=== PATIENT | female | born 1995 | race Caucasian/White ===

== ENCOUNTER 2022-03-28 18:07 | Emergency (ER) | payer MEDICAID, OTHER ==
[2022-03-28 19:06] LABS: BASOPHILS % (AUTO) 0.6 %; EOSINOPHILS # (AUTO) 0.1 10^3/uL (0.0-0.7); EOSINOPHILS % (AUTO) 2.2 %; HCT - HEMATOCRIT 38.3 % (37.0-47.0); HGB - HEMOGLOBIN 12.4 g/dL (12.0-16.0); LYMPHOCYTES # (AUTO) 1.3 10^3/uL (1.5-3.5); LYMPHOCYTES % (AUTO) 20.1 %; MEAN CORPUSCULAR HEMOGLOBIN 27.2 pg (27.0-31.0); MEAN CORPUSCULAR HGB CONC 32.4 g/dL (32.0-36.0); MEAN PLATELET VOLUME 11.4 fL (7.9-10.8); MONOCYTES # (AUTO) 0.5 10^3/uL (0.0-1.0); NEUTROPHILS # (AUTO) 4.4 10^3/uL (1.5-6.6); NEUTROPHILS % (AUTO) 68.8 %; PLT - PLATELET COUNT 193 10^3/uL (130-450); RED BLOOD COUNT 4.56 10^6/uL (4.20-5.40); RED CELL DISTRIBUTION WIDTH 13.5 % (12.0-15.0); WHITE BLOOD COUNT 6.4 x10^3/uL (4.8-10.8)
[2022-03-28 19:18] LABS: ALBUMIN 4.1 g/dL (3.2-5.5); ALBUMIN/GLOBULIN RATIO 1.4 (1.0-2.2); BILIRUBIN,TOTAL 0.2 mg/dL (0.2-1.0); CALCIUM 9.3 mg/dL (8.5-10.3); CREATININE 0.8 mg/dL (0.4-1.0); POTASSIUM 3.5 mmol/L (3.5-5.0); TOTAL PROTEIN 7.1 g/dL (6.7-8.2)
[2022-03-28 19:24] LABS: MUDS CUTOFF CONCENTRATIONS CUTOFF CONC BELOW:
[2022-03-28 19:27] LABS: BILIRUBIN,URINE NEGATIVE (NEGATIVE); GLUCOSE, URINE (UA) NEGATIVE (NEGATIVE); KETONES,URINE (UA) NEGATIVE (NEGATIVE); LEUKOCYTE ESTERASE, URINE TRACE (NEGATIVE); NITRITE,URINE NEGATIVE (NEGATIVE); OCCULT BLOOD,URINE NEGATIVE (NEGATIVE); PROTEIN,URINE NEGATIVE (NEGATIVE); UROBILINOGEN,URINE 0.2 (NORMAL) E.U./dL (NORMAL)
[2022-03-28 19:29] LABS: CLARITY,URINE HAZY (CLEAR); HCG UR QUAL NEGATIVE
[2022-03-28 19:39] LABS: BACTERIA,URINE Rare /HPF (None Seen); RBC,URINE 0-5 /HPF (0-5); SQUAMOUS EPITHELIAL CELL,UR FEW Squamous (<= Few); WBC,URINE 0-3 /HPF (0-5)
[2022-03-28 19:40] LABS: AMPHETAMINE SCREEN,URINE NEGATIVE (NEGATIVE); BARBITURATE SCREEN,UR NEGATIVE (NEGATIVE); BENZODIAZEPINES SCREEN, URINE POSITIVE (NEGATIVE); COCAINE SCREEN URINE NEGATIVE (NEGATIVE); METHADONE SCREEN, URINE NEGATIVE (NEGATIVE); METHAMPHETAMINES SCREEN, URINE NEGATIVE (NEGATIVE); OPIATE SCREEN, URINE NEGATIVE (NEGATIVE); OXYCODONE SCREEN, URINE NEGATIVE (NEGATIVE); PROPOXYPHENE SCREEN, URINE NEGATIVE (NEGATIVE); THC CANNABINOID SCREEN, URINE NEGATIVE (NEGATIVE); TRICYCLIC ANTIDEPRESSANT,URINE NEGATIVE (NEGATIVE)
--- NOTE | 2022-03-28 19:42 | ED Physician Documentation ---
History of Present Illness - Stated complaint Stated Complaint: STROKE SYMPTOMS - Chief complaint Chief Complaint: Neuro - History obtained from History obtained from: Patient - History of Present Illness Timing: How many days ago (2) Pain level max: 0 Pain level now: 0 Improved by: no ameliorating factors Worsened by: no exacerbating factors - Additonal information Additional information: c/o 2 days of clonic jerks/twitching, L>R, predominantly of trunk and LUE. Denies h/o similar symptoms. No inciting event. Patient moved to [facility] from [place] three months ago. Denies alcohol use. She does take alprazolam on daily basis but no recent missed doses. Review of Systems Constitutional: reports: Reviewed and negative Eyes: reports: Reviewed and negative Cardiac: reports: Reviewed and negative Respiratory: reports: Dyspnea. denies: Cough GI: reports: Reviewed and negative : denies: Now EGA Neurologic: denies: Generalized weakness, Focal weakness, Numbness, Headache PD PAST MEDICAL HISTORY - Past Medical History Past Medical History: Yes Other Past Medical History: lupus x 2013. SVT - Past Surgical History Past Surgical History: No - Allergies Allergies/Adverse Reactions: Allergies Allergy/AdvReac Type Severity Reaction Status Date / Time No Known Drug Allergies Allergy Verified 03/28/22 18:23 - Social History Does the pt smoke?: No Smoking Status: Never smoker PD ED PE NORMAL - Vitals Vital signs reviewed: Yes - General General: Alert and oriented X 3, No acute distress, Well developed/nourished - HEENT HEENT: Atraumatic, PERRL, EOMI, Moist mucous membranes - Neck Neck: Supple, no meningeal sign - Cardiac Cardiac: RRR, No murmur, No gallop, No rub - Respiratory Respiratory: No respiratory distress, Clear bilaterally - Abdomen Abdomen: Soft, Non tender - Neuro Neuro: Alert and oriented X 3, cross country coach 2-12 intact, No motor deficit, No sensory deficit, Normal speech Eye Opening: Spontaneous Motor: Obeys Commands Verbal: Oriented GCS Score: 15 - Psych Psych: Normal mood, Normal affect - Free text exam Free text exam: intermittent twitching/jerking movements (single clonic jerk movements) of trunk and BUE (L>R) Results - Vitals Vitals: Oxygen O2 Source Room air - Labs Labs: Microbiology 03/28/22 19:20 Urine Culture - Final Urine,Clean Catch >100,000 COLONIES/ML Polymicrobial growth including potential pathogens. This is suggestive of skin or other contamination. Laboratory Tests 03/28/22 03/28/22 03/28/22 18:53 18:58 18:58 WBC 6.4 RBC 4.56 Hgb 12.4 Hct 38.3 MCV 84.0 MCH 27.2 MCHC 32.4 RDW 13.5 Plt Count 193 MPV 11.4 H Neut # (Auto) 4.4 Lymph # (Auto) 1.3 L [place] # (Auto) 0.5 Eos # (Auto) 0.1 Baso # (Auto) 0.0 Absolute Nucleated RBC 0.00 Nucleated RBC % 0.0 Sodium 140 Potassium 3.5 Chloride 104 Carbon Dioxide 29 Anion Gap 7.0 BUN 10 Creatinine 0.8 Estimated GFR (MDRD) 86 L Glucose 94 Calcium 9.3 Total Bilirubin 0.2 AST 18 ALT 13 Alkaline Phosphatase 67 Total Protein 7.1 Albumin 4.1 Globulin 3.0 Albumin/Globulin Ratio 1.4 Lipase 47 TSH 2.52 Urine Color Urine Clarity Urine pH Ur Specific [place] Urine Protein Urine Glucose (UA) Urine Ketones Urine Occult Blood Urine Nitrite Urine Bilirubin Urine Urobilinogen Ur Leukocyte Esterase Urine RBC Urine WBC Ur Squamous Epith Cells Urine Bacteria Ur Microscopic Review Urine Culture Comments Urine HCG, Qual Urine Opiates Screen Ur Oxycodone Screen Urine Methadone Screen Ur Propoxyphene Screen Ur Barbiturates Screen Ur Tricyclics Screen Ur Phencyclidine Scrn Ur Amphetamine Screen U Methamphetamines Scrn U Benzodiazepines Scrn Urine Cocaine Screen U Cannabinoids Screen 03/28/22 19:20 WBC RBC Hgb Hct MCV MCH MCHC RDW Plt Count MPV Neut # (Auto) Lymph # (Auto) [place] # (Auto) Eos # (Auto) Baso # (Auto) Absolute Nucleated RBC Nucleated RBC % Sodium Potassium Chloride Carbon Dioxide Anion Gap BUN Creatinine Estimated GFR (MDRD) Glucose Calcium Total Bilirubin AST ALT Alkaline Phosphatase Total Protein Albumin Globulin Albumin/Globulin Ratio Lipase TSH Urine Color YELLOW Urine Clarity HAZY Urine pH 7.0 Ur Specific [place] 1.010 Urine Protein NEGATIVE Urine Glucose (UA) NEGATIVE Urine Ketones NEGATIVE Urine Occult Blood NEGATIVE Urine Nitrite NEGATIVE Urine Bilirubin NEGATIVE Urine Urobilinogen 0.2 (NORMAL) Ur Leukocyte Esterase TRACE H Urine RBC 0-5 Urine WBC 0-3 Ur Squamous Epith Cells FEW Squamous Urine Bacteria Rare Ur Microscopic Review INDICATED Urine Culture Comments INDICATED Urine HCG, Qual NEGATIVE Urine Opiates Screen NEGATIVE Ur Oxycodone Screen NEGATIVE Urine Methadone Screen NEGATIVE Ur Propoxyphene Screen NEGATIVE Ur Barbiturates Screen NEGATIVE Ur Tricyclics Screen NEGATIVE Ur Phencyclidine Scrn NEGATIVE Ur Amphetamine Screen NEGATIVE U Methamphetamines Scrn NEGATIVE U Benzodiazepines Scrn POSITIVE H Urine Cocaine Screen NEGATIVE U Cannabinoids Screen NEGATIVE - Rads (name of study) CTH Radiology: Prelim report reviewed, See rad report PD MEDICAL DECISION MAKING - ED course Complexity details: reviewed results, re-evaluated patient, considered differential, d/w patient ED course: unremarkable blood test and CTH results. Etiology of symptoms is not apparent at this time, but further emergent or inpatient testing not indicated at this time. She is AAOx3 during ED stay and the frequency of her twitching movement was markedly less frequent on reevaluation prior to discharge. She is in NAD during ED stay. Presentation would be atypical for seizures (no LOC/AMS, not rhythmic, focal, or unilateral), possibly myoclonic seizures. Movements/twitching noted on exam is not choreoathetoid and stimulant use is not suspected (calm, quiet, no hyperkinetic movements). Results d/w patient, advised to return if worse in any way, and to seek outpatient follow for reevaluation and possible further testing and/or neurology referral. Her symptoms having nearly resolved at the time of discharge, I offered a one-time dose of PO lorazepam to help her with sleep for tonight and she accepts this medication. Departure - Departure Disposition: 01 Home, Self Care Clinical Impression: Myoclonus Condition: Good Instructions: ED Symptoms No Dx Follow-Up: Cira Salgado PA-C [Provider Admit Priv/Credential] - Within 1 week Comments: The results of tonight's tests are without concerning/diagnostic findings. The cause of your symptoms is unclear at this time. You might need further testing if the symptoms persist. Contact your primary care provider to arrange for next available appointment for reevaluation. If you do not have a primary care provider, contact your insurance provider for a referral or use the information elsewhere on these discharge sheets for follow up locally. Discharge Date/Time: 03/28/22 23:12
--- NOTE | 2022-03-28 20:00 | CT Report ---
PROCEDURE: HEAD WO INDICATIONS: clonic twitching TECHNIQUE: Noncontrast 4.5 mm thick angled axial sections acquired from the foramen magnum to the vertex. For r adiation dose reduction, the following was used: automated exposure control, adjustment of mA and/or kV according to patient size. COMPARISON: None. FINDINGS: Image quality: Fair. CSF spaces: Basal cisterns are patent. No extra-axial fluid collections. Ventricles are normal in size and shape. Brain: No midline shift. No intracranial masses or hemorrhage. Manriquez-white matter interface is norm al. Skull and face: Calvarium and visualized facial bones are intact, without suspicious lesions. Sinuses: Visualized sinuses and mastoids are clear. IMPRESSION: No acute intracranial abnormality identified. Reviewed by: René Neely MD on 03/28/2022 7:59 PM PDT Approved by: René Neely MD on 03/28/2022 7:59 PM PDT Station ID: [id number]
[2022-03-28] MEDS ORDERED: LORazepam 0.5 MG TABLET PO STA (22:44)
[2022-03-28 23:12] VITALS: BP 116/78
== END 2022-03-28 23:12 | disposition home or self-care (01) ==
LOC: ED 18:07
DX: G25.3 Myoclonus (principal)
CPT/HCPCS: 36415; 70450; 80053; 80306; 81001; 81025; 83690; 84443; 85025; 87086; 99282; 99284; A9270; 81003

== ENCOUNTER 2022-05-27 10:08 | Emergency (ER) | payer OTHER ==
[2022-05-27 10:37] LABS: BASOPHILS # (AUTO) 0.1 10^3/uL (0.0-0.1); BASOPHILS % (AUTO) 0.7 %; EOSINOPHILS # (AUTO) 0.2 10^3/uL (0.0-0.7); EOSINOPHILS % (AUTO) 2.1 %; HGB - HEMOGLOBIN 12.4 g/dL (12.0-16.0); LYMPHOCYTES # (AUTO) 1.1 10^3/uL (1.5-3.5); LYMPHOCYTES % (AUTO) 13.2 %; MEAN CORPUSCULAR HEMOGLOBIN 25.9 pg (27.0-31.0); MEAN CORPUSCULAR VOLUME 83.5 fL (81.0-99.0); MEAN PLATELET VOLUME 11.4 fL (7.9-10.8); MONOCYTES # (AUTO) 0.6 10^3/uL (0.0-1.0); MONOCYTES % (AUTO) 7.5 %; NEUTROPHILS # (AUTO) 6.1 10^3/uL (1.5-6.6); NEUTROPHILS % (AUTO) 76.1 %; PLT - PLATELET COUNT 177 10^3/uL (130-450); RED BLOOD COUNT 4.79 10^6/uL (4.20-5.40); RED CELL DISTRIBUTION WIDTH 14.6 % (12.0-15.0); WHITE BLOOD COUNT 8.1 x10^3/uL (4.8-10.8)
[2022-05-27 10:53] LABS: ALBUMIN 4.2 g/dL (3.2-5.5); ALBUMIN/GLOBULIN RATIO 1.3 (1.0-2.2); BILIRUBIN,TOTAL 0.4 mg/dL (0.2-1.0); CALCIUM 9.3 mg/dL (8.5-10.3); CREATININE 0.7 mg/dL (0.4-1.0); POTASSIUM 3.7 mmol/L (3.5-5.0); TOTAL PROTEIN 7.5 g/dL (6.7-8.2)
--- NOTE | 2022-05-27 12:05 | ED Physician Documentation ---
History of Present Illness - Stated complaint Stated Complaint: BLEEDING/6 WEEKS - Chief complaint Chief Complaint: Abd Pain - Additonal information Additional information: This is a very pleasant 26-year-old female with no significant past medical history who presents with vaginal bleeding. Patient believes she is about 6 weeks with her last menstrual period is starting around April 07. She had not yet had any care. She noticed some bleeding and cramping this morning. Bleeding was similar to period type bleeding and required the use of a pad. She states pain is mild to moderate and in both sides of the pelvis. She has not had a fever or chills, no chest pain or difficulty breathing, no syncope or near syncope, no heart palpitations, no nausea, vomiting, diarrhea. She has not had any dysuria or other urinary symptoms. Review of Systems Ten Systems: 10 systems reviewed and negative (Except as noted in HPI) PD PAST MEDICAL HISTORY - Past Medical History Past Medical History: No - Past Surgical History Past Surgical History: No - Present Medications Home Medications: Ambulatory Orders Medication Instructions Recorded Confirmed No Known Home Medications 05/27/22 05/27/22 - Allergies Allergies/Adverse Reactions: Allergies Allergy/AdvReac Type Severity Reaction Status Date / Time No Known Drug Allergies Allergy Verified 05/27/22 10:15 - Social History Does the pt smoke?: No Smoking Status: Never smoker PD ED PE NORMAL - Vitals Vital signs reviewed: Yes - General General: Alert and oriented X 3, No acute distress, Well developed/nourished - HEENT HEENT: Atraumatic, Pharynx benign - Neck Neck: Supple, no meningeal sign, No JVD - Cardiac Cardiac: RRR, No murmur - Respiratory Respiratory: No respiratory distress, Clear bilaterally - Abdomen Abdomen: Normal bowel sounds, Soft, Non distended, Other (Mild lower abdominal tenderness bilaterally) - Derm Derm: Normal color, Warm and dry - Neuro Neuro: Alert and oriented X 3 Eye Opening: Spontaneous Motor: Obeys Commands Verbal: Oriented GCS Score: 15 - Psych Psych: Normal mood, Normal affect Results - Vitals Vitals: Vital Signs - 24 hr 05/27/22 05/27/22 10:13 12:16 Temperature 36.6 C Heart Rate 81 Respiratory 14 Rate Blood Pressure 99/54 L O2 Saturation 97 Oxygen O2 Source Room air - Labs Labs: Laboratory Tests 05/27/22 05/27/2222 10:32 10:32 10:32 WBC 8.1 RBC 4.79 Hgb 12.4 Hct 40.0 MCV 83.5 MCH 25.9 L MCHC 31.0 L RDW 14.6 Plt Count 177 MPV 11.4 H Neut # (Auto) 6.1 Lymph # (Auto) 1.1 L [place] # (Auto) 0.6 Eos # (Auto) 0.2 Baso # (Auto) 0.1 Absolute Nucleated RBC 0.00 Nucleated RBC % 0.0 Sodium 135 Potassium 3.7 Chloride 100 L Carbon Dioxide 28 Anion Gap 7.0 BUN 11 Creatinine 0.7 Estimated GFR (MDRD) 100 Glucose 75 Calcium 9.3 Total Bilirubin 0.4 AST 16 ALT 13 Alkaline Phosphatase 55 Total Protein 7.5 Albumin 4.2 Globulin 3.3 Albumin/Globulin Ratio 1.3 Lipase 45 HCG, Quant 84860.00 PD MEDICAL DECISION MAKING - ED course Complexity details: reviewed results, re-evaluated patient, considered differential, d/w patient, d/w family ED course: This is a very pleasant 26-year-old female who presented at about 6 weeks due to vaginal bleeding. Patient is stable appearing on physical exam, and hemodynamically stable. We therefore obtain labs which show a an hCG of In 12,650 and stable CBC and CMP. We proceeded with a transvaginal and abdominal ultrasound to rule out ectopic or evaluate for miscarriage and this showed No intrauterine or extrauterine but some signs of possible or gestational trophoblastic disease. I discussed the findings with the patient and suspect that she is having a miscarriage. I Discussed s upportive measures with patient including ibuprofen, Tylenol and ensuring plenty of rest for the next few days. I do recommend that she follows up with her OB or PCP in the next week or so to repeat hCG and possibly retreat p.o. ultrasound. I discussed return precautions if she had bleeding greater than 2 pads an hour for 2 hours or signs of symptomatic anemia clinic syncope, palpitations, or if she developed increasing abdominal or pelvic pain, fever or other new concerns. Departure - Departure Disposition: 01 Home, Self Care Condition: Good Instructions: ED Miscarriage Inevitable Comments: You presented at about 6 weeks with abdominal pain and bleeding. It appears on ultrasound that you have had a miscarriage, also known as a spontaneous . Typically the miscarriage will complete on its own and you may bleed for several days. Sometimes, the miscarriage is incomplete and you will need to follow up with your primary doctor or field reporter. If you are bleeding > 2 pads/hour x 2 hours continuous or are having increased abdominal pain, fever, or other new concerns, return to the ER as we discussed. Please follow up with PCP or OB in 5-7 days for repeat US and HCG.
--- NOTE | 2022-05-27 13:19 | Ultrasound Report ---
PROCEDURE: OB First Trimester w/TV INDICATIONS: first trim bleed, r/o ectopic pls OUTSIDE/PRIOR DATING DATA: Last menstrual period (LMP): 04/13/2022. LMP-based estimated date of delivery (GIBRAN): 01/18/2023. TECHNIQUE: Real-time scanning was performed of the fetus and maternal pelvic organs, with image documentation. Endovaginal scanning was also performed to better visualize the fetus and maternal ovaries. COMPARISON: None. FINDINGS: Anteverted uterus. No intrauterine or extrauterine visualized. The endometrium is heterogen eous and thickened in appearance with small cystic appearing spaces present. Maternal organs: Possible right ovarian corpus luteum. Ovaries otherwise unremarkable. No pelvic free fluid visualized. IMPRESSION: 1. of unknown location. No intrauterine or extrauterine is identified. 2. The endometrium is thickened with small cystic appearing areas present. These are nonspecific find ings but could be seen in the setting of gestational trophoblastic disease. Failed is also possible. 3. Recommend close clinical follow-up and correlation with serial beta hCG, and follow-up ultrasound if indicated. Reviewed by: Ed Meadows MD on 05/27/2022 12:17 PM [facility]BI Approved by: Ed Meadows MD on 05/27/2022 12:17 PM [facility] Station ID: [id number]
[2022-05-27 13:46] VITALS: BP 106/75
== END 2022-05-27 13:45 | disposition home or self-care (01) ==
LOC: ED 10:08
DX: O03.4 Incomplete spontaneous abortion without complication (principal); Z3A.01 Less than 8 weeks gestation of pregnancy
CPT/HCPCS: 36415; 80053; 83690; 84702; 85025; 99282; 99284

== ENCOUNTER 2022-10-03 11:43 | Outpatient (CLI) | payer OTHER ==
[2022-10-03 11:59] LABS: BASOPHILS # (AUTO) 0.1 10^3/uL (0.0-0.1); BASOPHILS % (AUTO) 0.8 %; EOSINOPHILS # (AUTO) 0.2 10^3/uL (0.0-0.7); EOSINOPHILS % (AUTO) 2.4 %; HCT - HEMATOCRIT 40.2 % (37.0-47.0); HGB - HEMOGLOBIN 12.6 g/dL (12.0-16.0); LYMPHOCYTES # (AUTO) 1.4 10^3/uL (1.5-3.5); LYMPHOCYTES % (AUTO) 21.1 %; MEAN CORPUSCULAR HEMOGLOBIN 26.1 pg (27.0-31.0); MEAN CORPUSCULAR HGB CONC 31.3 g/dL (32.0-36.0); MEAN CORPUSCULAR VOLUME 83.2 fL (81.0-99.0); MEAN PLATELET VOLUME 11.5 fL (7.9-10.8); MONOCYTES # (AUTO) 0.5 10^3/uL (0.0-1.0); MONOCYTES % (AUTO) 7.1 %; NEUTROPHILS # (AUTO) 4.5 10^3/uL (1.5-6.6); NEUTROPHILS % (AUTO) 68.3 %; PLT - PLATELET COUNT 207 10^3/uL (130-450); RED BLOOD COUNT 4.83 10^6/uL (4.20-5.40); RED CELL DISTRIBUTION WIDTH 14.8 % (12.0-15.0); WHITE BLOOD COUNT 6.6 x10^3/uL (4.8-10.8)
[2022-10-03 12:14] LABS: CREATININE,URINE < 13.0 mg/dL
[2022-10-03 12:23] LABS: MICROALBUMIN,URINE < 0.2 mg/dL (0-300.0)
[2022-10-03 12:31] LABS: ALBUMIN 4.1 g/dL (3.2-5.5); ALBUMIN/GLOBULIN RATIO 1.2 (1.0-2.2); ALKALINE PHOSPHATASE 49 IU/L (42-121); ALT ALANINE AMINOTRANSFERASE 13 IU/L (10-60); AST ASPARTATE AMINOTRANSFERASE 17 IU/L (10-42); BILIRUBIN,TOTAL 0.3 mg/dL (0.2-1.0); BUN - BLOOD UREA NITROGEN 13 mg/dL (6-20); CALCIUM 9.1 mg/dL (8.5-10.3); CARBON DIOXIDE - CO2 27 mmol/L (21-32); CHLORIDE 107 mmol/L (101-111); CHOL/HDL RATIO 2.3 (<4.4); CHOLESTEROL 152 mg/dL; CREATININE 0.7 mg/dL (0.4-1.0); GFR - MDRD 100 (>89); GLUCOSE 97 mg/dL (70-100); HDL CHOLESTEROL 66 mg/dL; POTASSIUM 3.3 mmol/L (3.5-5.0); SODIUM 140 mmol/L (135-145); TOTAL PROTEIN 7.5 g/dL (6.7-8.2); TRIGLYCERIDES 31 mg/dL
[2022-10-03 12:40] LABS: T4 (THYROXINE) 10.53 ug/dL (6.09-12.23)
[2022-10-03 12:44] LABS: THYROID STIMULATING HORMONE 1.93 uIU/mL (0.34-5.60)
[2022-10-03 12:46] LABS: FREE T4 (FREE THYROXINE) 0.97 ng/dL (0.58-1.64)
== END 2022-10-03 11:44 | disposition home or self-care (01) ==
LOC: LAB 11:43
PROVIDERS: ATTEND Nurse Practitioner
DX: Z00.00 Encounter for general adult medical examination without abnormal findings (principal); M32.9 Systemic lupus erythematosus, unspecified; F41.9 Anxiety disorder, unspecified; R25.1 Tremor, unspecified; M34.9 Systemic sclerosis, unspecified
CPT/HCPCS: 36415; 80053; 80061; 82043; 82570; 83721; 84436; 84439; 84443; 84480; 85025; 85651

== ENCOUNTER 2023-02-06 13:48 | Emergency (ER) | payer OTHER ==
[2023-02-06 13:57] VITALS: BP 128/69; O2SAT 100
--- NOTE | 2023-02-06 14:11 | ED Physician Documentation ---
PD HPI SKIN - Stated complaint Stated Complaint: NECK PX - Chief complaint Chief Complaint: General - History obtained from History obtained from: Patient - Additional information Additional information: Patient is a 27-year-old female presenting for evaluation of neck pain that she noted when she woke up this morning. She reports noticing a bump to the bottom area of her neck. She is unclear of the etiology of this bump. She denies any known trauma or falls. Denies fever. Does not take a blood thinner. Review of Systems Constitutional: denies: Fever Cardiac: denies: Chest pain / pressure Respiratory: denies: Dyspnea GI: denies: Abdominal Pain Musculoskeletal: reports: Neck pain Neurologic: denies: Headache PD PAST MEDICAL HISTORY - Past Surgical History Past Surgical History: No - Present Medications Home Medications: Ambulatory Orders Medication Instructions Recorded Confirmed Escitalopram [Lexapro] 10 mg PO DAILY 02/06/23 02/06/23 Hydrocortisone 1% Cream 1 applic TOP BID PRN #28 gm 02/06/23 [Hydrocortisone] hydrOXYzine HCL [Hydroxyzine HCl] 25 mg PO DAILY 02/06/23 02/06/23 - Allergies Allergies/Adverse Reactions: Allergies Allergy/AdvReac Type Severity Reaction Status Date / Time No Known Drug Allergies Allergy Verified 05/27/22 10:15 - Social History Does the pt smoke?: No Smoking Status: Never smoker PD ED PE NORMAL - General General: Alert and oriented X 3, No acute distress, Well developed/nourished - HEENT HEENT: Atraumatic, Moist mucous membranes, Pharynx benign - Neck Neck: Supple, no meningeal sign, No bony TTP - Cardiac Cardiac: RRR - Respiratory Respiratory: No respiratory distress, Clear bilaterally - Derm Derm: Warm and dry - Neuro Neuro: Alert and oriented X 3, No motor deficit, Normal speech PD ED PE EXPANDED - HEENT HEENT Visual: 1 - rash (Mild swelling and faint erythema, no fluctuance) Results - Vitals Vitals: Vital Signs - 24 hr 02/06/23 13:51 Temperature 36.5 C Heart Rate 100 Respiratory 16 Rate Blood Pressure 128/69 O2 Saturation 100 Oxygen O2 Source Room air PD Medical Decision Making - ED course ED course: Patient presenting for evaluation of neck pain and noticing an area of redness and swelling. She has no signs of meningitis. She is very well-appearing with good range of motion of her neck. There is a small area of faint erythema and swelling that does not appear to be cellulitis. I did look at this area with an ultrasound and see new fluid collection or signs of a foreign body. It has the appearance of an insect bite or sting with associated inflammatory response. I discussed recommendations for treatment at this time to include topical steroid cream, ice, anti-inflammatories. Patient is also counseled on strict return precautions for any worsening symptoms. Departure - Departure Disposition: 01 Home, Self Care Clinical Impression: Rash and nonspecific skin eruption Condition: Stable Instructions: ED Bite Sting Insect Gen Allergic React Prescriptions: Hydrocortisone 1% Cream [Hydrocortisone] 1 applic TOP BID PRN #28 gm PRN Reason: As Needed Per Provider Orders Comments: I believe the redness and swelling you are experiencing on your lower neck area is related to a bite or sting from a bug/insect. I did look at the area with an ultrasound and I do not see signs of an abscess or fluid collection that needs to be drained. At this time I would recommend using a topical steroid ointment twice a day to help with the swelling and irritation. Continue with anti- inflammatory such as ibuprofen or acetaminophen. Use ice to the area. Return to the emergency department with worsening symptoms such as increased redness or swelling or fevers or any new concerns. Forms: PCP List Discharge Date/Time: 02/06/23 14:20
== END 2023-02-06 14:20 | disposition home or self-care (01) ==
LOC: ED 13:48
DX: R21 Rash and other nonspecific skin eruption (principal)
CPT/HCPCS: 99282; 99283

== ENCOUNTER 2023-04-27 14:17 | Outpatient (CLI) | payer OTHER ==
--- NOTE | 2023-04-27 14:56 | XRAY Report ---
PROCEDURE: Clavicle RT INDICATIONS: CLAVICLE PAIN TECHNIQUE: 2 views of the clavicle were acquired. COMPARISON: None. FINDINGS: Bones: No fractures or dislocations. No suspicious bony lesions. Soft tissues: No suspicious soft tissue calcifications or masses. IMPRESSION: No acute bony abnormality. Reviewed by: Delano Pruitt on 04/27/2023 2:54 PM PDT Approved by: Delano Pruitt on 04/27/2023 2:54 PM PDT Station ID: [id number]
== END 2023-04-27 14:18 | disposition home or self-care (01) ==
LOC: DI 14:17
PROVIDERS: ATTEND Nurse Practitioner Family
DX: M25.511 Pain in right shoulder (principal)

== ENCOUNTER 2023-10-14 10:42 | Outpatient (CLI) | payer MEDICAID, OTHER ==
[2023-10-14 10:57] LABS: BASOPHILS % (AUTO) 0.8 %; EOSINOPHILS # (AUTO) 0.1 10^3/uL (0.0-0.7); EOSINOPHILS % (AUTO) 1.5 %; HCT - HEMATOCRIT 43.3 % (37.0-47.0); HGB - HEMOGLOBIN 13.3 g/dL (12.0-16.0); LYMPHOCYTES # (AUTO) 1.3 10^3/uL (1.5-3.5); LYMPHOCYTES % (AUTO) 24.8 %; MEAN CORPUSCULAR HGB CONC 30.7 g/dL (32.0-36.0); MEAN CORPUSCULAR VOLUME 84.7 fL (81.0-99.0); MEAN PLATELET VOLUME 11.6 fL (7.9-10.8); MONOCYTES # (AUTO) 0.4 10^3/uL (0.0-1.0); MONOCYTES % (AUTO) 6.8 %; NEUTROPHILS # (AUTO) 3.5 10^3/uL (1.5-6.6); NEUTROPHILS % (AUTO) 65.7 %; PLT - PLATELET COUNT 202 10^3/uL (130-450); RED BLOOD COUNT 5.11 10^6/uL (4.20-5.40); RED CELL DISTRIBUTION WIDTH 13.7 % (12.0-15.0); WHITE BLOOD COUNT 5.3 x10^3/uL (4.8-10.8)
[2023-10-14 11:12] LABS: ALBUMIN 4.3 g/dL (3.2-5.5); ALBUMIN/GLOBULIN RATIO 1.3 (1.0-2.2); BILIRUBIN,TOTAL 0.4 mg/dL (0.2-1.0); CALCIUM 9.7 mg/dL (8.5-10.3); CREATININE 0.7 mg/dL (0.6-1.3); POTASSIUM 3.5 mmol/L (3.5-4.5); TOTAL PROTEIN 7.5 g/dL (6.4-8.9)
[2023-10-14 11:24] LABS: CREATININE,URINE 69.4 mg/dL
[2023-10-14 11:28] LABS: THYROID STIMULATING HORMONE 2.69 uIU/mL (0.34-5.60)
[2023-10-14 11:30] LABS: MICROALBUMIN,URINE < 0.7 mg/dL
== END 2023-10-14 10:43 | disposition home or self-care (01) ==
LOC: LAB 10:42
PROVIDERS: ATTEND Physician Assistant Medical
DX: M62.838 Other muscle spasm (principal)
CPT/HCPCS: 36415; 80053; 82043; 82570; 82607; 84443; 85025

== ENCOUNTER 2024-10-06 07:45 | Inpatient (IN) ==
[2024-10-06] MEDS ORDERED: METHYLERGONOVINE 0.2 MG/ML VIAL IM PRN (07:58)
[2024-10-06] MEDS ORDERED: fentaNYL 100 MCG/2 ML VIAL IVP PRN (07:58)
[2024-10-06] MEDS ORDERED: miSOPROStoL 200 MCG TABLET BC PRN (07:58)
[2024-10-06] MEDS ORDERED: miSOPROStoL 200 MCG TABLET PR PRN (07:58)
[2024-10-06] MEDS ORDERED: NIFEdipine 10 MG CAPSULE PO PRN (07:58)
[2024-10-06] MEDS ORDERED: lidocaine 1% 20 ML MDV ID PRN (07:58)
[2024-10-06] MEDS ORDERED: OXYTOCIN 10 UNIT/ML VIAL IM PRN (07:58)
[2024-10-06] MEDS ORDERED: hydrALAZINE INJ 20 MG/ML VIAL IVP PRN (07:58)
[2024-10-06] MEDS ORDERED: SODIUM CHLORIDE FLUSH 0.9% 10 ML SYRINGE IVP PRN (07:58)
[2024-10-06] MEDS ORDERED: OXYTOCIN/SODIUM CHLORIDE 500 ML IV PRN (07:58)
[2024-10-06] MEDS ORDERED: TRANEXAMIC ACID IN NACL 1,000 MG/100 ML BAG IV PRN (07:58)
[2024-10-06] MEDS ORDERED: LABETALOL 20 MG/4 ML SYRINGE IVP PRN ×3 (07:58)
--- OUTSIDE RECORDS SUMMARY | 2024-10-06 08:08 | EXTERNAL MEDICAL SUMMARY RPT | Continuity of Care Document ---
Author Organization [facility] Address [address] [place] [id number] Phone Problems date description facility 2024-06-28 10:30 Encounter for superv ision of normal first , unspecified trimester [facility] 2024-06-28 10:33 Encounter for superv ision of normal first , unspecified trimester [facility] 2024-07-06 10:15 Encounter for superv ision of normal first , unspecified trimester [facility] 2024-07-08 16:12 Supervision of high risk , unspecified, second trimester [facility] 2024-07-08 16:12 Other specified preg antwon related conditions, unspecified trimester [facility] 2024-07-08 16:12 Heartburn [facility] 2024-07-11 06:38 Nonrheumatic mitral (valve) ins ufficiency [facility] 2024-07-13 09:25 Encounter for superv ision of normal , unspecified, second trimester [facility] 2024-07-27 12:09 Encounter for test, r esult positive [facility] 2024-07-27 12:09 Encounter for superv ision of normal first , unspecified trimester [facility] 2024-07-27 12:09 Encounter for screeni ng, unspecified [facility] 2024-07-27 12:11 Encounter for test, r esult positive [facility] 2024-07-27 12:11 Encounter for superv ision of normal first , unspecified trimester [facility] 2024-07-27 12:11 Encounter for screeni ng, unspecified [facility] 2024-07-27 12:12 Nonrheumatic mitral (valve) ins ufficiency [facility] 2024-07-27 12:14 Nonrheumatic mitral (valve) ins ufficiency [facility] 2024-07-27 12:15 Encounter for test, r esult positive [facility] 2024-07-27 12:15 Encounter for superv ision of normal first , unspecified trimester [facility] 2024-07-27 12:15 Encounter for screeni ng, unspecified [facility] 2024-07-28 16:33 Encounter for test, r esult positive [facility] 2024-07-28 16:33 Encounter for superv ision of normal first , unspecified trimester [facility] 2024-07-28 16:33 Encounter for screeni ng, unspecified [facility] 2024-07-29 00:01 Encounter for test, r esult positive [facility] 2024-07-29 00:01 Encounter for superv ision of normal first , unspecified trimester [facility] 2024-07-29 00:01 Encounter for screeni ng, unspecified [facility] 2024-07-29 08:04 Nonrheumatic mitral (valve) ins ufficiency [facility] 2024-07-30 00:01 Nonrheumatic mitral (valve) ins ufficiency [facility] 2024-08-11 00:03 Supervision of high risk , unspecified, second trimester [facility] 2024-08-11 00:03 Encounter for test, r esult positive [facility] 2024-08-11 00:03 Encounter for superv ision of normal first , unspecified trimester [facility] 2024-08-11 00:03 Encounter for superv ision of normal , unspecified, unspecified trimester [facility] 2024-08-11 00:03 Encounter for screeni ng, unspecified [facility] 2024-08-11 14:31 Supervision of high risk , unspecified, second trimester [facility] 2024-08-31 10:28 False labor before 3 7 completed weeks of gestation, third trimester [facility] 2024-09-02 14:26 Maternal care for ot her known or suspected poor growth, unspecified trimester, not applicable or unspecified [facility] 2024-09-06 11:15 Encounter for immunization [facility] 2024-09-09 14:14 Maternal care for ot her known or suspected poor growth, third trimester, not applicable or unspecified [facility] 2024-09-10 00:02 Maternal care for ot her known or suspected poor growth, third trimester, not applicable or unspecified [facility] 2024-09-17 00:02 Maternal care for ot her known or suspected poor growth, third trimester, not applicable or unspecified [facility] 2024-09-23 09:23 Encounter for screeni ng for Streptococcus B [facility] 2024-09-23 09:55 Encounter for screeni ng for Streptococcus B [facility] 2024-09-23 09:56 Encounter for screeni ng for Streptococcus B [facility] 2024-09-23 10:57 Thrombocytopenia, unspecified [facility] 2024-09-23 10:57 Supervision of high risk , unspecified, third trimester [facility] 2024-09-23 10:57 Other diseases of th e blood and blood-forming organs and certain disorders involving the immune mechanism complicating , unspecified trimester [facility] 2024-09-23 11:38 Maternal care for ot her known or suspected poor growth, third trimester, not applicable or unspecified [facility] 2024-09-23 11:38 Encounter for screeni ng for Streptococcus B [facility] 2024-09-24 00:02 Encounter for screeni ng for Streptococcus B [facility] 2024-09-24 00:03 Thrombocytopenia, unspecified [facility] 2024-09-24 00:03 Supervision of high risk , unspecified, third trimester [facility] 2024-09-24 00:03 Other diseases of th e blood and blood-forming organs and certain disorders involving the immune mechanism complicating , unspecified trimester [facility] 2024-09-26 09:11 Supervision of high risk , unspecified, third trimester [facility] 2024-09-28 06:42 Supervision of high risk , unspecified, third trimester [facility] 2024-09-30 10:46 Maternal care for ot her known or suspected poor growth, third trimester, not applicable or unspecified [facility] 2024-10-03 09:56 Maternal care for ot her known or suspected poor growth, third trimester, not applicable or unspecified [facility] 2024-10-04 06:47 Maternal care for ot her known or suspected poor growth, third trimester, not applicable or unspecified [facility] 2024-10-04 10:11 Maternal care for ot her known or suspected poor growth, third trimester, not applicable or unspecified [facility] 2024-10-04 10:15 Maternal care for ot her known or suspected poor growth, third trimester, not applicable or unspecified [facility] 2024-10-05 19:03 Maternal care for ot her known or suspected poor growth, third trimester, not applicable or unspecified [facility] 2024-10-06 00:02 Maternal care for ot her known or suspected poor growth, third trimester, not applicable or unspecified [facility] Results/Labs test date facility value unit notes Result panel 1 [facility]TI[facility]A 2024-08-10 11:13 [facility] <0.2 ai (missing) [facility] ANTI-SS[facility]B 2024-08-10 11:13 [facility] <0.2 ai (missing) [facility] 2024-08-10 11:13 [facility] <10.0 iu/ml Social History date description facility
[2024-10-06] MEDS: miSOPROStoL 100 MCG TABLET BC SCH (08:55)
[2024-10-06 08:56] LABS: BASOPHILS % (AUTO) 0.5 %; EOSINOPHILS # (AUTO) 0.1 10^3/uL (0.0-0.7); EOSINOPHILS % (AUTO) 1.1 %; HCT - HEMATOCRIT 34.8 % (37.0-47.0); HGB - HEMOGLOBIN 10.4 g/dL (12.0-16.0); LYMPHOCYTES # (AUTO) 1.2 10^3/uL (1.5-3.5); LYMPHOCYTES % (AUTO) 18.2 %; MEAN CORPUSCULAR HEMOGLOBIN 23.6 pg (27.0-31.0); MEAN CORPUSCULAR HGB CONC 29.9 g/dL (32.0-36.0); MEAN CORPUSCULAR VOLUME 79.1 fL (81.0-99.0); MEAN PLATELET VOLUME 12.3 fL (7.9-10.8); MONOCYTES # (AUTO) 0.4 10^3/uL (0.0-1.0); MONOCYTES % (AUTO) 5.9 %; NEUTROPHILS # (AUTO) 4.9 10^3/uL (1.5-6.6); PLT - PLATELET COUNT 129 10^3/uL (130-450); RED CELL DISTRIBUTION WIDTH 15.1 % (12.0-15.0); WHITE BLOOD COUNT 6.6 x10^3/uL (4.8-10.8)
[2024-10-06 09:16] LABS: ALBUMIN 3.4 g/dL (3.2-5.5); ALBUMIN/GLOBULIN RATIO 1.1 (1.0-2.2); BILIRUBIN,TOTAL 0.3 mg/dL (0.2-1.0); CALCIUM 8.3 mg/dL (8.5-10.3); CREATININE 0.6 mg/dL (0.6-1.3); POTASSIUM 3.5 mmol/L (3.5-4.5); TOTAL PROTEIN 6.4 g/dL (6.4-8.9)
[2024-10-06] MEDS: SODIUM CHLORIDE FLUSH 0.9% 10 ML SYRINGE IVP SCH (10:33)
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
--- NOTE | 2024-10-06 14:38 | PHARMACY PROGRESS NOTE ---
Best Possible Medication History Admit Date and Time: 10/06/24 0758 Home Medications Medication Instructions Recorded Confirmed Type vits no.126-ferrous fum 1 tab PO .DAILY 04/13/24 10/06/24 History 28 mg iron-folic acid 800 mcg tablet (Classic ) aspirin 81 mg tablet,delayed 81 mg PO QDAY #90 tabs 07/06/24 10/06/24 Rx release famotidine 20 mg tablet 20 mg PO BID 10/06/24 10/06/24 History Processed by: Pharmacy Medications reviewed in ED?: No Medication History completed: Yes Patient Interview: Completed Secondary Source(s): Insurance records [facility] Statement: Per RN patient interview and review of [employer] insurance records. As the person ultimately responsible for medication therapy, providers are able to order a medication from an existing home medication list in [facility] via the "Reconcile Routine" prior to Confirmation of that medication by passport support associate. Such practice is discouraged except when the physician, in their clinical judgment, deems that a medical need exists for a medication without regard to previous use.
[2024-10-06] MEDS: ACETAMINOPHEN 500 MG TABLET PO PRN (21:05)
--- NOTE | 2024-10-06 22:24 | PROVIDER PROGRESS NOTE ---
Labor Progress Note Labor Progress Note Labor Progress Note/Additional Text: S: Received 4th dose of misoprostol at 9pm. Starting to feel more painful contractions. Discussed SVE to assess progress, initially consented to exam but then became very anxious. O: VS reviewed in Centricity SVE: deferred monitoring: FHTs: 130s bpm baseline, + accel, few small variable decelerations, mod variability [place]: 1-5 min Cat 2, overall reassuring A/P: Lora is a 28 yo at 38w3d who is admitted for IOL in the setting of IUGR with elevated UA dopplers. - Will continue IOL with misoprostol. Very anxious about cervical exams, will try to limit as much as possible. Discussed pain management options, OK for epidural when/if she chooses. Abram Lindsey MD
[2024-10-06] MEDS ORDERED: diphenhydrAMINE 25 MG CAPSULE PO ONE (22:45)
[2024-10-06] MEDS: diphenhydrAMINE 25 MG CAPSULE PO PRN (22:48)
[2024-10-07] MEDS: LACTATED RINGERS 1,000 ML IV PRN (03:56)
[2024-10-07] MEDS ORDERED: LIDOCAINE 2%-EPI 1:100000 20 ML MDV ONE (05:06)
[2024-10-07] MEDS ORDERED: ROPIVACAINE 0.2% 200 MG/100 ML BAG EP ONE (05:07)
[2024-10-07] MEDS ORDERED: SODIUM CHLORIDE 0.9% 10 ML VIAL ONE ×2 (05:08→09:24)
[2024-10-07] MEDS ORDERED: ROPIVACAINE 0.2% 200 MG/100 ML BAG EP PRN (05:45)
[2024-10-07] MEDS: TERBUTALINE 1 MG/ML VIAL SUBQ PRN (06:13)
[2024-10-07] MEDS: ePHEDrine 50 MG/ML VIAL IVP PRN (06:15)
--- NOTE | 2024-10-07 06:41 | PROVIDER PROGRESS NOTE ---
Labor Progress Note Labor Progress Note Labor Progress Note/Additional Text: I was notified by RN of intermittent variable decelerations after SROM. On review of FHTs, intermittent variables noted but FHTs overall reassuring. I saw Lora at bedside. She was very uncomfortable with contractions, and we discu ssed proceeding with epidural if she was ready for one and she did desire to proceed. We discussed possible placement of IUPC/FSE with repeat check after epidural if variables persist. Does not tolerate SVE well so will wait until comfortable with epidural. Epidural was placed. Intermittent variables persisted. Lora consented to repeat SVE and placement of internal monitors which were placed without difficulty. SVE at that time /-2, posterior. Several very deep repetitive decelerations occurred just after this exam, and she has several back to back contractions as well as episode of hypotension. She was repositioned, terbutaline and then ephedrine were given, as well as amnioinfusion started. Decelerations then resolved. I discussed event with Lora. Decelerations have resolved and FHTs now Cat1. Will continue to monitor closely. Possibility of delivery in the setting of non- reassuring FHTs was discussed. Abram Lindsey MD
[2024-10-07] MEDS ORDERED: ceFAZolin 2 GM VIAL ONE (07:59)
[2024-10-07] MEDS ORDERED: CITRIC ACID/SODIUM CITRATE 15 ML UDC PO ONE (07:59)
[2024-10-07] MEDS ORDERED: DEXMEDETOMIDINE 200 MCG/2 ML VIAL ONE (08:05)
[2024-10-07] MEDS ORDERED: PHENYLEPHRINE HCL 0.5 MG/5 ML AMPULE ONE ×2 (08:05→09:02)
[2024-10-07] MEDS ORDERED: ONDANSETRON 4 MG/2 ML VIAL ONE (08:05)
[2024-10-07] MEDS ORDERED: ACETAMINOPHEN 500 MG TABLET PO ONE ×2 (08:06→15:03)
[2024-10-07] MEDS ORDERED: OXYTOCIN/SODIUM CHLORIDE 500 ML IV ONE (08:09)
--- NOTE | 2024-10-07 08:11 | PROVIDER PROGRESS NOTE ---
Labor Progress Note Labor Progress Note Labor Progress Note/Additional Text: Patient seen at bedside again for repetitive decelerations, which have persisted despite repositioning, IV fluid bolus, multiple doses of ephedrine, and amnioinfusion. Repetitive decelerations present for more than one hour. SVE 3.5/50/-2. I recommended to Lora that we proceed with delivery for intolerance of labor remote from delivery. We reviewed risks of delivery including pain, bleeding (possibly requiring blood transfusion or as a life-saving measure hysterectomy), infection, damage to nearby structures including bowel/bladder, longer recovery time , increased risk for DVT, risk of /injury to mom or baby. Consent was signed. Anesthesia made aware. I requested that we monitor baby continuousy in OR while preparing for delivery, and if epidural needs to be replaced. Abram Lindsey MD
[2024-10-07] MEDS: CITRIC ACID/SODIUM CITRATE 15 ML UDC PO ONE (08:16)
[2024-10-07] MEDS: ONDANSETRON 4 MG/2 ML VIAL IVP PRN (08:16)
[2024-10-07] MEDS: AZITHROMYCIN INJ 500 MG in SODIUM CHLORIDE 0.9% 250 ML IV ONE (08:17)
[2024-10-07] MEDS: ceFAZolin (2G) 2 GM in SODIUM CHLORIDE 0.9% MINIBAG 100 ML IV ONE (08:20)
[2024-10-07] MEDS ORDERED: PHENYLEPHRINE 10 MG/ML VIAL ONE (08:53)
[2024-10-07] MEDS ORDERED: LACTATED RINGERS 1,000 ML IV SCH ×2 (09:00→11:00)
[2024-10-07] MEDS ORDERED: ePHEDrine 50 MG/ML VIAL IVP ONE (09:01)
[2024-10-07] MEDS ORDERED: fentaNYL 100 MCG/2 ML VIAL ONE (09:04)
[2024-10-07] MEDS ORDERED: KETOROLAC 30 MG/ML VIAL ONE ×2 (09:14→15:03)
[2024-10-07] MEDS ORDERED: ROPIVACAINE 0.5% PF 20 ML VIAL ONE (09:24)
[2024-10-07] MEDS ORDERED: DEXAMETHASONE 4 MG/ML VIAL ONE (09:37)
[2024-10-07] MEDS ORDERED: OXYTOCIN/SODIUM CHLORIDE 500 ML IV PRN ×2 (10:04→12:07)
[2024-10-07] MEDS ORDERED: NALOXONE 0.4 MG/ML VIAL IVP PRN ×2 (10:04→10:57)
[2024-10-07] MEDS ORDERED: hydrALAZINE INJ 20 MG/ML VIAL IVP PRN ×2 (10:04)
[2024-10-07] MEDS ORDERED: MAGNESIUM HYDROXIDE 2,400 MG/30 ML UDC PO PRN (10:04)
[2024-10-07] MEDS ORDERED: NIFEdipine 10 MG CAPSULE PO PRN (10:04)
[2024-10-07] MEDS ORDERED: oxyCODONE 5 MG TABLET PO PRN (10:04)
[2024-10-07] MEDS ORDERED: LABETALOL 20 MG/4 ML SYRINGE IVP PRN ×3 (10:04)
[2024-10-07] MEDS ORDERED: VARICELLA VACCINE LIVE/PF 1,350 UNIT/0.5 ML VIAL SUBQ ONE (10:06)
[2024-10-07] MEDS ORDERED: MEASLES,MUMPS & RUBELLA VACC 0.5 ML VIAL SUBQ ONE (10:06)
[2024-10-07] MEDS ORDERED: METOCLOPRAMIDE 10 MG/2 ML VIAL IVP PRN (10:57)
[2024-10-07] MEDS ORDERED: ATROPINE ABBOJECT 1 MG/10 ML SYRINGE IVP PRN (10:57)
[2024-10-07] MEDS ORDERED: ONDANSETRON 4 MG/2 ML VIAL IVP PRN (10:57)
[2024-10-07] MEDS ORDERED: HYDROmorphone 0.5 MG/0.5 ML SYRINGE IVP PRN (10:57)
[2024-10-07] MEDS ORDERED: fentaNYL 100 MCG/2 ML VIAL IVP PRN (10:57)
[2024-10-07] MEDS ORDERED: ePHEDrine 50 MG/ML VIAL IVP PRN (10:57)
[2024-10-07] MEDS ORDERED: MORPHINE 2 MG/ML CARPUJECT IVP PRN (10:57)
--- NOTE | 2024-10-07 10:58 | ANESTHESIA POST OP EVALUATION ---
Anesthesia Post Eval Post Anesthesia Eval Vitals: Last Vital Signs Temp 36.6 C 10/07/24 10:35 Pulse 104 H 10/07/24 10:35 Resp 16 10/07/24 10:35 BP 102/79 10/07/24 10:35 Pulse Ox 100 10/07/24 10:35 CV Function Including HR & BP: Stable Pain Control: Satisfactory Nausea & Vomiting: Negative Mental Status: Baseline Respiratory Status: Airway Patent Hydration Status: Satisfactory Anesthesia Complications: None
[2024-10-07] MEDS ORDERED: ACETAMINOPHEN 500 MG TABLET PO SCH ×2 (11:00→18:00)
[2024-10-07] MEDS ORDERED: KETOROLAC 30 MG/ML VIAL IVP SCH (12:00)
[2024-10-07] MEDS: oxyCODONE 5 MG TABLET PO PRN (12:52)
[2024-10-07] MEDS: SIMETHICONE CHEW 80 MG TABLET PO PRN (15:05)
[2024-10-07] MEDS: KETOROLAC 30 MG/ML VIAL IVP SCH (15:05)
[2024-10-07] MEDS: ACETAMINOPHEN 500 MG TABLET PO SCH (15:05)
--- NOTE | 2024-10-07 16:57 | OPERATIVE REPORT ---
Operative Report General Admit Date: 10/06/24 Procedure Data: Operation Date: 10/07/24 08:15 Proposed Procedures p Section(Not Applicable) - Abram Lindsey MD Actual Procedures p Section(Not Applicable) - Abram Lindsey MD Anesthesia Type Spinal Case Staff Anesthesia Provider: Mehnaz Stevens Anesthesia Provider: Hilda Garcia Assisting Provider: Kit Hauser Case Times Into Recovery: 10/07/24 09:58 Procedure Start: 10/07/24 08:46 Procedure End: 10/07/24 09:35 Time out: 10/07/24 08:44 Other Other Information/Narrative: DATE OF PROCEDURE: 10/07/24 Surgeon: Abram Lindsey MD Applications Architect: MD Dr. Clive Pearson's assistance was necessary for the entire procedure for adequate retraction and visualization, to shorten operative time, to assist with delivery of the infant, and to lower the risk of surgical injury. Pre-Op Diagnosis: IUGR with elevated UA dopplers, intolerance to labor remote from delivery Post-Op Diagnosis: Same Procedures: primary low transverse delivery Findings: Meconium stained amniotic fluid, infant in cephalic presentation, red tissue/adhesions on the posterior aspect of the uterus suspicious for endometriosis. Defect in the serosa of the left parametrium, possibly from adhesions that during exteriorizing of the uterus (hemostatic). Extension of the hysterotomy on the left side. Approximately 5cm hematoma below the left inferior portion of the hysterotomy which was not expanding. Specimens: placenta for IUGR Anesthesia Technique: spinal Estimated Blood Loss: 900cc Blood Replacement: none Fluid Replacement: 900cc Drains: kee catheter Complications: none Condition: stable Procedure in Detail: The patient was taken to the operating room where epidural was removed and spinal anesthesia was placed. She was prepared and draped in the normal sterile fashion in the dorsal supine position with a leftward tilt. 2g Ancef and 500mg azithromycin were given for prophylaxis. A pfannenstiel skin incision was made with the scalpel and carried down through the subcutaneous tissue in the midline. The remainder of the subcutaneous tissue was then bluntly. The fascia was incised in the midline and the incision was extended bluntly. The superior aspect of the fascial incision was grasped with two Nelly clamps, elevated, and the underlying rectus muscles dissected off both bluntly and with the aid of the dueñas scissors. Finger dissection was used to separate the rectus muscles in the midline and the peritoneum was entered and the layers extended bluntly. Right peritoneal edge extended with the bovie. The bladder blade was then inserted. The lower uterine segment was incised in a transverse fashion with the scalpel. The uterine incision was extended bluntly. The bladder blade was removed and the infants head was brought to the hysterotomy. Fundal pressure applied and the infant delivered atraumatically. The cord was clamped and cut after approximately 30 seconds and the infant was handed off to the waiting provider. The placenta was removed with gentle uterine massage and cord traction. The uterus was exteriorized and cleared of all clots and debris with moist laparotomy sponges. The uterine incision was repaired with 0 Vicryl in a running fashion. There was an extension on the left side that was still bleeding and an O'leary stitch was placed with 0 monocryl. Additional figure of eight stitch was placed and hemostasis achieved. A hematoma was noted at the inferior portion of the hysterotomy on the left side, but was stable and not expanding. A second layer of 0 monocryl was used across the hysterotomy in an imbricating fashion. The posterior cul-de-sac was cleared of all clots and debris with laparotomy sponges. The defect in the serosa on the left side of the uterus was hemosta tic. There were several other small oozing areas which were cauterized with the bovie. Hemostasis noted. The uterus was returned to the abdomen. The gutters were cleared of all clots. Hemostasis of the hystertomy was again noted. The rectus muscles were carefully examined and electrocautery was used to achieve hemostasis. The fascia was reapproximated with 0 Vicryl in a running fashion. The subcutaneous tissues was irrigated. The subcutaneous tissue was reapproximated with 2-0 Vicryl, and the skin was closed with 4-0 monocryl. The patient tolerated the procedure well. Sponge, lap, needle, and instrument counts were correct at the end of the procedure. The patient was taken to the recovery room in stable condition. Abram Lindsey MD
[2024-10-07] MEDS ORDERED: DOCUSATE SODIUM 100 MG CAPSULE PO SCH (21:00)
[2024-10-08] MEDS: LACTATED RINGERS 1,000 ML IV SCH (00:32)
[2024-10-08 05:47] LABS: BASOPHILS % (AUTO) 0.2 %; EOSINOPHILS % (AUTO) 0.1 %; HCT - HEMATOCRIT 28.2 % (37.0-47.0); HGB - HEMOGLOBIN 8.5 g/dL (12.0-16.0); LYMPHOCYTES # (AUTO) 1.4 10^3/uL (1.5-3.5); MEAN CORPUSCULAR HEMOGLOBIN 23.7 pg (27.0-31.0); MEAN CORPUSCULAR HGB CONC 30.1 g/dL (32.0-36.0); MEAN CORPUSCULAR VOLUME 78.8 fL (81.0-99.0); MEAN PLATELET VOLUME 12.2 fL (7.9-10.8); MONOCYTES # (AUTO) 0.5 10^3/uL (0.0-1.0); MONOCYTES % (AUTO) 6.2 %; NEUTROPHILS # (AUTO) 6.7 10^3/uL (1.5-6.6); NEUTROPHILS % (AUTO) 77.2 %; PLT - PLATELET COUNT 127 10^3/uL (130-450); RED BLOOD COUNT 3.58 10^6/uL (4.20-5.40); RED CELL DISTRIBUTION WIDTH 15.3 % (12.0-15.0); WHITE BLOOD COUNT 8.7 x10^3/uL (4.8-10.8)
[2024-10-08] MEDS: DOCUSATE SODIUM 100 MG CAPSULE PO SCH (08:46)
[2024-10-08] MEDS ORDERED: IBUPROFEN 800 MG TABLET PO ONE (09:43)
[2024-10-08] MEDS ORDERED: IBUPROFEN 600 MG TABLET PO ONE (09:49)
[2024-10-08] MEDS: IBUPROFEN 600 MG TABLET PO SCH (09:50)
[2024-10-08] MEDS ORDERED: IBUPROFEN 600 MG TABLET PO SCH (11:00)
--- NOTE | 2024-10-08 19:02 | PROVIDER PROGRESS NOTE ---
Subjective Subjective Subjective: Subjective Patient reports she is doing well. Lochia appropriate. Denies heavy bleeding. Minimal ambulation. Pelvic and abdominal pain well-controlled. Tolerating oral intake. Diet: Regular. Voiding without difficulty. Passing flatus. Denies BM. Patient is bonding with baby in room Breast feeding going well. Denies feeling lightheaded, dizzy or excessively fatigued. Objective General: Alert, oriented, no apparent distress. Cardiovascular: Regular rate. Regular rhythm. Lungs: No increased work of breathing. Abdomen: Uterus firm. Below umbilicus. No guarding or rebound. Extremities: No pain on palpation. No cords palpated. Distal pulses intact. Incision: Bandage in place. Current Medications Current Medications Current Medications: Current Medications Generic Name Dose Route Start Last Admin Trade Name Freq PRN Reason Stop Dose Admin Acetaminophen 1,000 mg 10/07/24 18:00 10/08/24 18:24 Acetaminophen 500 Mg Tablet PO 1,000 mg Q6HR MEAGHAN Administration Diphenhydramine HCl 50 mg 10/06/24 22:46 10/06/24 22:48 Diphenhydramine 25 Mg Capsule PO 50 mg QPM PRN Administration Insomnia Docusate Sodium 100 mg 10/08/24 09:00 10/08/24 08:46 Docusate Sodium 100 Mg Capsule PO 100 mg DAILY MEAGHAN Administration Oxytocin/Sodium Chloride 500 mls @ 999 mls/hr 10/07/24 12:07 Pitocin/Sodium Chloride IV PRN PRN POST- HEMORR PREVENTION Protocol 999 MILLIUNIT/MIN Lactated Ringer's 1,000 mls @ 100 mls/hr 10/07/24 13:00 10/08/24 00:32 Lr IV 100 mls/hr .Q10H MEAGHAN Administration Ibuprofen 600 mg 10/08/24 18:00 10/08/24 18:24 Ibuprofen 600 Mg Tablet PO 600 mg Q6HR MEAGHAN Administration Ondansetron HCl 4 mg 10/07/24 12:07 Ondansetron Odt 4 Mg Tablet TL Q4HR PRN Nausea / Vomiting Oxycodone HCl 5 mg 10/07/24 12:07 10/08/24 14:52 Oxycodone 5 Mg Tablet PO 5 mg Q4HR PRN Administration Moderate Pain (Level 4-6) Simethicone 80 mg 10/07/24 12:07 10/08/24 12:56 Simethicone Chew 80 Mg Tablet PO 80 mg TID PRN Administration Gas Objective Vital Signs/Intake & Output Intake & Output: Intake & Output 10/05/24 10/06/24 10/07/24 10/08/24 23:59 23:59 23:59 23:59 Intake Total 1203 / 1203 Output Total 465 / 465 500 / 500 Balance 738 / 738 -500 / -500 Weight (kg) 167 lb Lab Results 10/08/24 05:36 10/06/24 08:50 Other Labs: Lab Results x24hrs 10/08/24 Range/Units 05:36 WBC 8.7 (4.8-10.8) x10^3/uL RBC 3.58 L (4.20-5.40) 10^6/uL Hgb 8.5 L (12.0-16.0) g/dL Hct 28.2 L (37.0-47.0) % MCV 78.8 L (81.0-99.0) fL MCH 23.7 L (27.0-31.0) pg MCHC 30.1 L (32.0-36.0) g/dL RDW 15.3 H (12.0-15.0) % Plt Count 127 L (130-450) 10^3/uL MPV 12.2 H (7.9-10.8) fL Neut # (Auto) 6.7 H (1.5-6.6) 10^3/uL Lymph # (Auto) 1.4 L (1.5-3.5) 10^3/uL [place] # (Auto) 0.5 (0.0-1.0) 10^3/uL Eos # (Auto) 0.0 (0.0-0.7) 10^3/uL Baso # (Auto) 0.0 (0.0-0.1) 10^3/uL Absolute Nucleated RBC 0.00 x10^3/uL Nucleated RBC % 0.0 /100WBC Assessment/Plan Problem List (1) care and examination of lactating mother: Impression: Doing well overall. Possible discharge tomorrow, but likely Thursday. Routine care, routine postoperative care. Encourage increase ambulation and out of bed as she is not moving much. SCDs to remain on. (2) Delivery by section: (3) Delivery outcome of alfredo : Qualifiers: outcome: live Qualified Code(s): Z37.0 - Single live
[2024-10-09 05:49] LABS: BASOPHILS % (AUTO) 0.6 %; EOSINOPHILS # (AUTO) 0.1 10^3/uL (0.0-0.7); EOSINOPHILS % (AUTO) 1.3 %; HCT - HEMATOCRIT 27.4 % (37.0-47.0); HGB - HEMOGLOBIN 8.4 g/dL (12.0-16.0); LYMPHOCYTES # (AUTO) 1.3 10^3/uL (1.5-3.5); LYMPHOCYTES % (AUTO) 18.1 %; MEAN CORPUSCULAR HEMOGLOBIN 24.4 pg (27.0-31.0); MEAN CORPUSCULAR HGB CONC 30.7 g/dL (32.0-36.0); MEAN CORPUSCULAR VOLUME 79.7 fL (81.0-99.0); MEAN PLATELET VOLUME 12.2 fL (7.9-10.8); MONOCYTES # (AUTO) 0.5 10^3/uL (0.0-1.0); MONOCYTES % (AUTO) 6.5 %; NEUTROPHILS # (AUTO) 5.3 10^3/uL (1.5-6.6); NEUTROPHILS % (AUTO) 73.1 %; PLT - PLATELET COUNT 125 10^3/uL (130-450); RED BLOOD COUNT 3.44 10^6/uL (4.20-5.40); RED CELL DISTRIBUTION WIDTH 15.4 % (12.0-15.0); WHITE BLOOD COUNT 7.2 x10^3/uL (4.8-10.8)
--- NOTE | 2024-10-09 11:04 | Discharge Summary ---
Discharge Summary Admit Date: 10/06/24 Discharge Date: 10/09/24 Discharging Provider: Kit Hauser Code Status: Attempt Resuscitation DIAGNOSES Admission Diagnoses: IUGR Induction of labor SLE Discharge Diagnoses with Status of Each Condition: Same intolerance of labor Status post primary low transverse section Delivery of live alfredo HPI History of Present Illness: Subjective Patient reports she is doing well. Lochia appropriate. Denies heavy bleeding. Ambulating. Pelvic and abdominal pain well-controlled. Tolerating oral intake. Diet: Regular. Voiding without difficulty. Passing flatus. Denies BM. Patient is bonding with baby in room Bottle feeding at this time. Denies feeling lightheaded, dizzy or excessively fatigued. Objective General: Alert, oriented, no apparent distress. Cardiovascular: Regular rate. Regular rhythm. Lungs: No increased work of breathing. Abdomen: Uterus firm. Below umbilicus. No guarding or rebound. Extremities: No pain on palpation. No cords palpated. Distal pulses intact. Incision: Clean, dry, and intact. HOSPITAL COURSE Hospital Course: Patient admitted for induction of labor at 38 weeks gestation for IUGR with abnormal Dopplers. She underwent induction of labor, but had repetitive decelerations and was removed from delivery, so went for a primary low- transverse section. section was uncomplicated. course was overall uncomplicated, but had a slow response to getting active again. On day 2, she was up out of bed nor and not requiring additional pain medicines, so as she was bottlefeeding and felt comfortable taking her home, they were discharged on postop operative day 2 in good condition. ALLERGIES Allergies Allergy/AdvReac Type Severity Reaction Status Date / Time animal dander Allergy Itching Verified 09/30/24 10:17 grass pollen Allergy Itching Verified 09/30/24 10:17 house dust Allergy Itching Verified 09/30/24 10:17 Latex, Natural Rubber Allergy Unknown Verified 09/30/24 10:17 pollen extracts Allergy Itching Verified 09/30/24 10:17 MEDICATIONS Ambulatory Orders Medication Instructions Recorded Confirmed vits no.126-ferrous fum 1 tab PO .DAILY 04/13/24 10/06/24 28 mg iron-folic acid 800 mcg tablet (Classic ) famotidine 20 mg tablet 20 mg PO BID 10/06/24 10/06/24 acetaminophen 500 mg tablet 1,000 mg (2 x 500 mg) PO Q8H PRN 10/09/24 (Acetaminophen Extra Strength) Pain #60 tabs ibuprofen 600 mg tablet 600 mg PO Q6H PRN Pain #30 tabs 10/09/24 oxycodone 5 mg tablet 5 mg PO Q4H PRN Severe Pain #20 10/09/24 tabs oxycodone 5 mg tablet 5 mg PO Q4H PRN Severe Pain #20 10/09/24 tabs LABS 10/09/24 05:40 10/06/24 08:50 FOLLOW UP Follow Up: With [facility] in 1 week TIME SPENT Time Spent in Discharge (Minutes): 30 Discharge Plan Discharge Patient Disposition: Home, Self Care Medically Cleared Date:: 10/09/24 Prescriptions: New acetaminophen [Acetaminophen Extra Strength] 500 mg tablet 1,000 mg PO Q8H PRN (Reason: Pain) Qty: 60 1RF ibuprofen 600 mg tablet 600 mg PO Q6H PRN (Reason: Pain) Qty: 30 0RF oxycodone 5 mg tablet 5 mg PO Q4H PRN (Reason: Severe Pain) Qty: 20 0RF oxycodone 5 mg tablet 5 mg PO Q4H PRN (Reason: Severe Pain) Qty: 20 0RF Continued famotidine 20 mg tablet 20 mg PO BID Patient Comments: TAKE 1 TABLET BY MOUTH TWICE DAILY Classic 28 mg iron- 800 mcg tablet 1 tab PO .DAILY Discontinued aspirin 81 mg tablet,delayed release (DR/EC) 81 mg PO QDAY Qty: 90 1RF Activity Restrictions: Additional Comments Diet: Regular Print Language: Persian Patient Instructions: Depression , C Section Dc Follow-up Care: Abram Lindsey MD [Provider Admit Priv/Credential] - Agnes Barrett ARNP [Primary Care Provider] -
[2024-10-09] MEDS: FERRIC GLUCONATE 125 MG in SODIUM CHLORIDE 0.9% 100ML 100 ML IV ONE (14:13)
[2024-10-09] MEDS: ONDANSETRON ODT 4 MG TABLET TL PRN (16:36)
[2024-10-09 21:35] VITALS: TEMP 98.2
[2024-10-10 06:13] VITALS: BP 114/78; O2SAT 96
[2024-10-10] MEDS: MEASLES,MUMPS & RUBELLA VACC 0.5 ML VIAL SUBQ ONE (11:48)
[2024-10-10] MEDS: VARICELLA VACCINE LIVE/PF 1,350 UNIT/0.5 ML VIAL SUBQ ONE (11:54)
--- NOTE | 2024-10-10 13:25 | Labor Flowsheet ---
Labor Flowsheet Datetime Report Generated by CPN: 10/10/2024 13:25 Datetime: 10/07/2024 16:46 Membranes Ruptured Date/Time: 10/07/2024 03:30 Datetime: 10/07/2024 15:59 Pulse: 103 SpO2 (%): 98 Datetime: 10/07/2024 14:00 VITAL SIGNS NBP Sys/Emma/Mean (mmHg): 135 : 79 : 90 Datetime: 10/07/2024 10:49 Stage of : Datetime: 10/07/2024 10:44 LaborFlag: Labor Datetime: 10/07/2024 08:18 Comments: Monitors removed for transfer to OR by primary RN Oumou Stobaugh and OR creative services designer Titus ie Datetime: 10/07/2024 07:58 Anesthesia Comments: At bedside. Consent for Datetime: 10/07/2024 07:52 Patient Position/Activity: Left Extreme Datetime: 10/07/2024 07:43 Provider Reviewed Strip: Yes Datetime: 10/07/2024 07:35 Strip Reviewed by: Dr. Lindsey on unit Datetime: 10/07/2024 07:11 PATIENT CARE IV/Blood Work: New IV Bag Hung Datetime: 10/07/2024 07:05 COMMUNICATION Communication: RN at Bedside; Report Given to @ RN Stobaugh Communication Comments: RN to RN report at bedside Datetime: 10/07/2024 07:02 Respirations: 22 Temperature (C): 36.6 Datetime: 10/07/2024 07:01 UTERINE ACTIVITY Monitor Mode: Internal Frequency (min): 2.5-3 Duration (sec): 60-70 Pattern: Normal: <= 5 Contractions in 10 Minutes Resting Tone (Palpate): Relaxed Resting Tone IUP (mmHg): 20 Intensity IUP (mmHg): 85-95 ASSESSMENT A Monitor Mode: Internal Scalp Electrode FHR Baseline Rate : 150 Variability: Minimal - Undetectable to <=5 bpm Accelerations: None Decelerations: Late Actions for Decelerations: Side to Side; IV Bolus; Blood Pressure; Provider Notified Category: Category II Datetime: 10/07/2024 06:45 I/O Interventions: Dsouza Cath Inserted Patient Care Comments: 425ml urine drained Datetime: 10/07/2024 06:30 Contraction Comments: Amnioinfuaion continues. Datetime: 10/07/2024 06:15 MEDICATIONS Magnesium/Antihypertensives: Ephedrine IV (mg) @ (Annotations: 5mg IVP) Datetime: 10/07/2024 06:13 Tocolytics: Terbutaline 0.25mg Subcutaneous Datetime: 10/07/2024 06:01 Monitor Interventions for UA: IUPC Inserted VAGINAL EXAM Dilatation (cm): 3.0 Effacement (%): 50 Station: -3 Exam by: Dr Lindsey Vaginal Bleeding: None Cervix, Consistency: Moderate Cervix, Position: Midposition Datetime: 10/07/2024 05:50 Provider Notified (Name): Dr Lindsey at bedside to assess dilation and place IUPC and FSE Datetime: 10/07/2024 05:45 PAIN Pain Scale: 0 Pain Presence: None/Denies Pain Type: N/A Pain Location: Comfortable with epidural Datetime: 10/07/2024 05:35 Epidural Procedure: Loading Dose Datetime: 10/07/2024 05:17 PROCEDURE TIME OUT Procedure Type: 15 Procedure Verify: Correct Patient Identity; Correct Side and Site are Marked; Accurate Procedure Co nsent Form; Agreement on Procedure to be Done; Correct Patient Position ANESTHESIA Anesthesia Plans: Epidural Epidural Positioning: Sitting Datetime: 10/07/2024 05:10 Medication Comments: Nitrous oxide stopped prior to epidural time out. Datetime: 10/07/2024 05:00 Quality: Moderate Datetime: 10/07/2024 04:37 Pain Goal: 5 Pain Relief Measures: Using Nitrous Oxide intermittently with UCs Datetime: 10/07/2024 04:14 Notification Reason: Status; Uterine Activity; Pain Datetime: 10/07/2024 03:57 Pain Coping: Breathing Through Contractions; Declines Medication or Epidural Datetime: 10/07/2024 03:30 FHR Baseline Changes: Baseline rate inc to 155 Membranes Rupture Method: Spontaneous Amniotic Fluid Color: Light Meconium Amniotic Fluid Amount: Small Amniotic Fluid Odor: None Nitrazine: Positive Datetime: 10/07/2024 03:17 Pain Assessment Comments: nitrous oxide started Comfort Measures: Breathing/Relaxation; Coaching; Family Support Datetime: 10/07/2024 02:19 Monitor Interventions for FHR: Ultrasound Adjusted Datetime: 10/07/2024 02:05 Cervical Ripening Agents: Cytotec @ Datetime: 10/07/2024 01:30 Oxygen Method: Room Air Datetime: 10/06/2024 11:45 Temperature Route: Oral
--- NOTE | 2024-10-10 21:23 | Discharge Summary ---
"Discharge Summary Admit Date: 10/06/24 Discharge Date: 10/07/24 Discharging Provider: Lucille Burks MD Code Status: Attempt Resuscitation DIAGNOSES Admission Diagnoses: at 37 wks with severe IUGR admitted for induction. Discharge Diagnoses with Status of Each Condition: intolerance to labor resulting in c section at 3.5 cm. HPI History of Present Illness: G1 with complicated by severe IUGR. She is followed with and here with us. admitted for induction. CONSULTS | PROCEDURES Procedures: c section. HOSPITAL COURSE Hospital Course: Patient admitted for induction of labor at 38 weeks gestation for IUGR with abnormal Dopplers. She underwent induction of labor, but had repetitive decelerations and was removed from delivery, so went for a primary low- transverse section. section was uncomplicated. course was overall uncomplicated, but had a slow response to getting active again. On day 2, she was up out of bed nor and not requiring additional pain medicines, so as she was bottlefeeding and felt comfortable taking her home, they were discharged on postop operative day 2 in good condition but did not go home. They felt they needed to stay another day. So they were discharged on pod #3. varicella and MMR vaccines were given prior to discharge as patient was not immune. baby did pass car seat challenge prior to discharge. baby girl's name is Tammi. ALLERGIES Allergies Allergy/AdvReac Type Severity Reaction Status Date / Time animal dander Allergy Itching Verified 09/30/24 10:17 grass pollen Allergy Itching Verified 09/30/24 10:17 house dust Allergy Itching Verified 09/30/24 10:17 Latex, Natural Rubber Allergy Unknown Verified 09/30/24 10:17 pollen extracts Allergy Itching Verified 09/30/24 10:17 MEDICATIONS Ambulatory Orders Medication Instructions Recorded Confirmed vits no.126-ferrous fum 1 tab PO .DAILY 04/13/24 10/06/24 28 mg iron-folic acid 800 mcg tablet (Classic ) famotidine 20 mg tablet 20 mg PO BID 10/06/24 10/06/24 acetaminophen 500 mg tablet 1,000 mg (2 x 500 mg) PO Q8H PRN 10/09/24 (Acetaminophen Extra Strength) Pain #60 tabs ibuprofen 600 mg tablet 600 mg PO Q6H PRN Pain #30 tabs 10/09/24 oxycodone 5 mg tablet 5 mg PO Q4H PRN Severe Pain #20 10/09/24 tabs docusate sodium 100 mg capsule 100 mg PO BID PRN constipation #60 10/10/24 10/10/24 (Colace) caps ferrous sulfate 325 mg (65 mg 325 mg PO Q OTHER DAY #90 tabs 10/10/24 10/10/24 iron) tablet (FeroSul) polyethylene glycol 3350 17 17 g PO QDAY PRN constipation #510 10/10/24 10/10/24 gram/dose oral powder (Miralax) grams PHYSICAL EXAM AT DISCHARGE Vital Signs: stable. General Appearance: positive No acute distress and Other (up and moving around. ) Respiratory: positive No respiratory distress Cardiovascular: positive Regular rate & rhythm Abdomen: positive Other (normal tenderness. Wound healing well without erythema. ) LABS 10/09/24 05:40 10/06/24 08:50 FOLLOW UP Follow Up: in clinic next week. TIME SPENT Time Spent in Discharge (Minutes): 20 Discharge Plan Discharge Patient Disposition: Home, Self Care Condition: Stable Medically Cleared Date:: 10/09/24 Prescriptions: New acetaminophen [Acetaminophen Extra Strength] 500 mg tablet 1,000 mg PO Q8H PRN (Reason: Pain) Qty: 60 1RF ibuprofen 600 mg tablet 600 mg PO Q6H PRN (Reason: Pain) Qty: 30 0RF oxycodone 5 mg tablet 5 mg PO Q4H PRN (Reason: Severe Pain) Qty: 20 0RF Continued famotidine 20 mg tablet 20 mg PO BID Patient Comments: TAKE 1 TABLET BY MOUTH TWICE DAILY Classic 28 mg iron- 800 mcg tablet 1 tab PO .DAILY Discontinued aspirin 81 mg tablet,delayed release (DR/EC) 81 mg PO QDAY Qty: 90 1RF No Action ferrous sulfate [FeroSul] 325 mg (65 mg iron) tablet 325 mg PO Q OTHER DAY Qty: 90 0RF polyethylene glycol 3350 [Miralax] 17 gram/dose powder 17 g PO QDAY PRN (Reason: constipation) Qty: 510 0RF docusate sodium [Colace] 100 mg capsule 100 mg PO BID PRN (Reason: constipation) Qty: 60 1RF Activity Restrictions: Additional Comments Activity Restrictions/Additional Instructions: nothing in vagina for 6 week. no lifting more than 15 pounds for 6 weeks. OK to shower, no bath for 2 weeks. call if significant headache or very heavy bleeding. keep a very supportive bra on and stimulate breasts as little as possible. Constipation is common. Be sure to eat lots of fruits and veggie, drink lots of water. Coffee can be helpful if you like it and 1 cup is fine for baby. Diet: Regular Print Language: Chinese Patient Instructions: Depression , C Section Dc Follow-up Care: Abram Lindsey MD [Provider Admit Priv/Credential] - Agnes Barrett ARNP [Primary Care Provider] -"
== END 2024-10-10 12:55 | disposition home or self-care (01) | DRG 787 ==
LOC: WFO 07:45 → FBP 07:49
PROVIDERS: ADMIT Obstetrics & Gynecology; ATTEND Obstetrics & Gynecology
DX: Z37.0 Single live birth; O99.12 Other diseases of the blood and blood-forming organs and certain disorders involving the immune mechanism complicating childbirth; O77.0 Labor and delivery complicated by meconium in amniotic fluid; Z3A.38 38 weeks gestation of pregnancy; O99.892 Other specified diseases and conditions complicating childbirth; O77.9 Labor and delivery complicated by fetal stress, unspecified; O36.5930 Maternal care for other known or suspected poor fetal growth, third trimester, not applicable or unspecified; D69.6 Thrombocytopenia, unspecified; M32.9 Systemic lupus erythematosus, unspecified